=== PATIENT | male | born 1990 | race Asian ===

== ENCOUNTER 2020-02-28 16:53 | Emergency (ER) | payer BC ==
--- NOTE | 2020-02-28 17:20 | UC ---
Abdominal Pain Male HPI - HPI Summary HPI Summary: 29yo male presenting with "severe" centralized abdominal pain that began 1.5 hours ago. States he also had a similar episode of abd pain 2 days ago that lasted 3 hours and then subsided. Describes pain as an "intense ache." States he was hiking today when it came on suddenly. States pain was 10/10 but is now 3 /10. Denies radiating pain. Notes 1 episode of diarrhea today accompanied by nausea. Denies blood in the stool. Denies vomiting. Denies aggravating and alleviating factors of pain. Denies changes in urination. Denies recent illness or ill contacts. Denies taking anything for symptom relief. Normal appetite and fluid intake. Denies h/o GI disorders and abdominal surgeries. Takes 1 tab truvada daily. - History of Current Complaint Stated Complaint: GI PAIN Hx Obtained From: Patient - Allergies/Home Medications Allergies/Adverse Reactions: Allergies Allergy/AdvReac Type Severity Reaction Status Date / Time No Known Allergies Allergy Verified 02/28/20 17:27 Home Medications: Home Medications Emtricitabine/Tenofovir (Tdf) [Truvada 200 mg-300 mg Tablet] 1 tab PO DAILY [History Confirmed 02/28/20] PMH/Surg Hx/FS Hx/Imm Hx Previously Healthy: Yes - Family History Known Family History: Positive: Unknown - Social History Alcohol Use: Occasionally Substance Use Type: None Smoking Status (MU): Current Some Day Smoker Type: Cigarettes Amount Used/How Often: "socially" Review of Systems All Other Systems Reviewed And Are Negative: Yes Constitutional: Positive: Negative ENT: Positive: Negative, Dental Pain Cardiovascular: Positive: Negative Gastrointestinal: Positive: Abdominal Pain, Diarrhea, Nausea. Negative: Vomiting Genitourinary: Positive: Negative Musculoskeletal: Positive: Negative Neurological/Mental Status: Positive: Negative Physical Exam - Summary Physical Exam Summary: Vital Signs Reviewed: Yes A+Ox3, no distress, well-appearing Eyes: Conjunctiva Clear ENT: Hearing grossly normal, TM x 2 clear, moist, uvula midline, no exudate, no erythema Neck: Positive: Supple, no LAD Respiratory: Positive: No respiratory distress, No accessory muscle use + CTA throughout no w/r Cardiovascular: RRR nl s1, s2 no m/r Abd: soft + BS nt/nd no guarding, negative murphys sign, negative rovsings signs, no mcburneys point tenderness, Musculoskeletal Exam: SERRANO x 4 without difficulty Neurological: Positive: Alert Psychological: Positive: age appropriate behavior Skin: Positive: no rash, no ecchymosis Vital Signs: Vital Signs (72 hours) 02/28/20 17:23 Temperature 98.4 F Pulse Rate 78 Respiratory 18 Rate Blood Pressure 165/101 (mmHg) O2 Sat by Pulse 98 Oximetry Lab Results 02/28/20 Range/Units 18:04 POC Urine Color Yellow POC Urine Clarity Clear POC Urine pH 6.0 (5-9) POC Ur Specif [place] 1.025 (1.010-1.030) POC Urine Protein Negative (Negative) POC Ur Glucose (UA) Negative (Negative) POC Urine Ketones Negative (Negative) POC Urine Blood Negative (Negative) POC Urine Nitrite Negative (Negative) POC Urine Bilirubin Negative (Negative) POC Urine Urobilinogen 0.2 (Negative) POC U Leukocyte Esteras Negative (Negative) Diagnostics - Radiology CT abd/pel Radiology Interpretation Completed By: Radiologist Summary of Radiographic Findings: IMPRESSION: 1. Moderate wall thickening of proximal and mid small bowel without pathologic dilatation. This is most suggestive of enteritis. No evidence of obstruction. 2. Urinary bladder wall thickening versus artifact from under distention . Suggest correlation with clinical history and UA to exclude cystitis. 3. Free fluid in the pelvis. 4. No evidence of appendicitis. 5. Liquid stool in the colon consistent with history of diarrhea. Abd Pain Male Course/Dx - Course Course Of Treatment: UA negative. CT scan suggestive of enteritis. Discussed results with patient and educated on viral vs bacterial source of symptoms. I educated him on symptomatic treatment and instructed to maintain hydration. I also discussed s/ s of worsening abdominal illness and instructed to go to ED if any new or worsening symptoms occur. Patient voiced understanding and agreed with treatment plan. - Differential Dx/Clinical Impression Provider Diagnosis: Enteritis, Central abdominal pain, Acute diarrhea Discharge ED - Sign-Out/Discharge Documenting (check all that apply): Patient Departure All imaging exams completed and their final reports reviewed: Yes - Discharge Plan Condition: Stable Disposition: HOME Patient Education Materials: Acute Abdominal Pain (ED), Enteritis (ED) Referrals: Arjun Rajan [employer]PERATIONS RESEARCH ENGINEER [Nurse Practitioner] - Additional Instructions: As discussed, increase your fluid intake and get plenty of rest. You may also take tylenol as directed for pain relief. Eat a bland diet, such as bread, bananas, and rice while symptoms are present. Go to the emergency room if you develop new or worsening symptoms including fever, severe abdominal pain, excessive vomiting/diarrhea, have blood in the stool, or are unable to keep fluids down. - Billing Disposition and Condition Condition: STABLE Disposition: Home
[2020-02-28 17:35] VITALS: BP 165/101
[2020-02-28] MEDS ORDERED: Famotidine TAB* 20 MG PO ONE (18:44)
== END 2020-02-28 19:09 | disposition home or self-care (01) ==
LOC: UCEAST 16:53
DX: R10.84 Generalized abdominal pain (principal); R19.7 Diarrhea, unspecified; Z72.0 Tobacco use
CPT/HCPCS: 74176; 81003; 99212; A9270-GY; G0463